=== PATIENT | female | born 1965 | race Caucasian/White ===

== ENCOUNTER 2016-12-24 04:52 | Inpatient (IN) | payer OTHER ==
[2016-12-24] VITALS (22 sets, daily range): BP systolic 86–154; BP diastolic 49–84; PULSE 55–78; RESP 14–22; TEMP 97.9; Ht 157.5 cm; Wt 54.5 kg
[~2016-12-24] VITALS: Ht 157.5 cm; Wt 54.5 kg
[2016-12-24 05:19] LABS: URINE BLOOD (Dip) POC Trace-intact (NEGATIVE)
[2016-12-24] MEDS ORDERED: LIDOCAINE/MYLANTA 40 ML BTL PO STA (05:21)
[2016-12-24] MEDS ORDERED: SOD CHLORIDE 0.9% 1,000 ML IV STA (05:21)
[2016-12-24] MEDS ORDERED: ONDANSETRON 4 MG INJ IV STA (05:21)
[2016-12-24] MEDS ORDERED: KETOROLAC 15 MG INJ IV STA (05:21)
[2016-12-24] MEDS ORDERED: BELLADONNA/PHENOBARBITAL TAB PO STA (05:21)
[2016-12-24 05:44] LABS: BASOPHILS % 0.2 % (0.0-2.0); EOSINOPHILS % 0.2 % (0.0-7.0); HEMATOCRIT 41.1 % (37.0-47.0); HEMOGLOBIN 13.8 g/dl (12.0-16.0); LYMPHOCYTES # 1.3 10^3/ul (0.8-2.9); LYMPHOCYTES % 9.5 % (15.0-51.0); MEAN CORPUSCULAR HEMOGLOBIN 27.6 pg (29.0-33.0); MEAN CORPUSCULAR HGB CONC 33.6 g/dl (32.0-37.0); MEAN CORPUSCULAR VOLUME 82.2 fl (82.0-101.0); MEAN PLATELET VOLUME 11.2 fl (7.4-10.4); MONOCYTE # 0.3 10^3/ul (0.3-0.9); MONOCYTES % 2.5 % (0.0-11.0); NEUTROPHILS % 87.1 % (39.0-77.0); PLATELET COUNT 228 10^3/UL (140-415); RED CELL DISTRIBUTION WIDTH 12.8 % (11.5-14.5); WHITE BLOOD COUNT 13.3 10^3/ul (4.8-10.8)
[2016-12-24 06:09] LABS: ALBUMIN 4.4 g/dl (3.3-4.9); ALBUMIN/GLOBULIN RATIO 1.25; BILIRUBIN,INDIRECT 0.7 mg/dl (0-1.1); BILIRUBIN,TOTAL 0.7 mg/dl (0.2-1.3); CALCIUM 8.8 mg/dl (8.4-10.2); CREATININE 0.58 mg/dl (0.44-1.00); INR 0.93; POTASSIUM 3.8 mmol/L (3.5-5.1); PROTIME 12.5 Sec (12.2-14.2); TOTAL PROTEIN 7.9 g/dl (6.1-8.1)
[2016-12-24] MEDS ORDERED: morphine 4 MG/ML VIAL IV STA (06:10)
[2016-12-24 06:15] LABS: ADD UMIC YES; UR AMORPHOUS CRYSTAL MODERATE /HPF (NONE SEEN); UR ASCORBIC ACID NEGATIVE (NEGATIVE); UR BILIRUBIN (Dip) NEGATIVE (NEGATIVE); UR BLOOD (Dip) NEGATIVE (NEGATIVE); UR CLARITY CLOUDY (CLEAR); UR COLOR YELLOW (YELLOW); UR GLUCOSE (Dip) NEGATIVE (NEGATIVE); UR KETONES (Dip) NEGATIVE (NEGATIVE); UR LEUKOCYTE ESTERASE (Dip) NEGATIVE Leu/ul (NEGATIVE); UR MUCUS FEW /HPF (NONE SEEN); UR NITRITE (Dip) NEGATIVE (NEGATIVE); UR RBC 0 /HPF (0-5); UR SPECIFIC GRAVITY (Dip) 1.019 (1.003-1.030); UR SQUAMOUS EPITHELIAL CELL FEW /HPF (FEW); UR TOTAL PROTEIN (Dip) 1+ mg/dl (NEGATIVE); UR UROBILINOGEN (Dip) NEGATIVE (NEGATIVE)
--- NOTE | 2016-12-24 06:41 | RADRPT ---
PROCEDURE: CT of the abdomen and pelvis without contrast CLINICAL INDICATION: Abdominal Pain. TECHNIQUE: Spiral CT images through the abdomen and pelvis without the use of contrast. The admin istered radiation dose is CTDI 5.75 and DLP 312.18. One or more of the following dose reduction masood hniques were used: automated exposure control, adjustment of the mA and/or kV according to patient s ize, or use of iterative reconstruction technique. COMPARISON: None FINDINGS: Lack of oral and intravenous contrast somewhat limits evaluation. Slight dependent atelectasis of the lung bases is seen. No pleural effusion is seen. The liver, spleen, adrenal glands and pancreas are normal in appearance.. There is evidence of chol elithiasis or biliary ductal dilatation. The kidneys are normal in size and contour. There is no e vidence of hydronephrosis or nephrolithiasis. The aorta is normal in caliber. Prominent mesenteric lymph nodes are seen. There is no evidence for bowel obstruction, free air, free fluid or abscess. The appendix is distended measuring 11-12 mm. Intraluminal hyperdensities or appendicoliths are se en. No significant inflammatory changes are visualized . The ascending and transverse colon are fe kings filled. The uterus is identified. The bladder is decompressed. There is severe L5-S1 degenera tive disk disease.. IMPRESSION: Possible mild or early acute appendicitis. Clinical correlation recommended.. RPTAT: HCNS Physician Jennifer Date Time Electronically viewed and signed by Physician Jennifer on 12/24/2016 06:41 /
--- NOTE | 2016-12-24 07:00 | ERA ---
ER Documentation Chief Complaint Date/Time DATE: 12/24/16 TIME: 06:53 Chief Complaint right mid abdominal pain radiating to back with nausea and vomiting APPAREL STOCK CHECKER HPI 51-year-old female presenting with right lower quadrant pain. Pain started 12 hours ago, is constant, nonradiating, stays in the right lower quadrant, associated with nausea and vomiting. She had normal bowel movement today that was nonbloody. She denies any associated fevers or chills. No dysuria or hematuria. ROS All systems reviewed and are negative except as per history of present illness. Allergies Allergies: Coded Allergies: No Known Allergy (Unverified , 12/24/16) PMhx/Soc History of Surgery: Yes (thyroid) Anesthesia Reaction: No Hx Neurological Disorder: No Hx Respiratory Disorders: No Hx Cardiac Disorders: Yes (HTN) Hx Psychiatric Problems: No Hx Miscellaneous Medical Probl: No Hx Alcohol Use: No Hx Substance Use: No Hx Tobacco Use: No Smoking Status: Never smoker FmHx Family History: No diabetes Physical Exam Vitals Vital Signs Date Time Temp Pulse Resp B/P Pulse Ox O2 Delivery O2 Flow Rate FiO2 12/24/16 06:15 67 18 161/90 98 Room Air 12/24/16 04:54 97.9 69 20 176/86 95 Physical Exam Const: Nontoxic, appears to be in mild distress secondary to pain Head: Atraumatic Eyes: Normal Conjunctiva ENT: Normal External Ears, Nose and Mouth. Neck: Full range of motion..~ No meningismus. Resp: Clear to auscultation bilaterally Cardio: Regular rate and rhythm, no murmurs Abd: Soft, non distended. Mild to moderate McBurney's point tenderness. Normal bowel sounds Skin: No petechiae or rashes Back: No midline or flank tenderness Ext: No cyanosis, or edema Neur: Awake and alert Psych: Normal Mood and Affect Result Diagram: 12/24/16 0530 12/24/16 0530 Results 24 hrs Laboratory Tests Test 12/24/16 05:24 12/24/16 05:30 Bedside Urine pH (LAB) 8.5 Bedside Urine Protein (LAB) 2+ Bedside Urine Glucose (UA) Negative Bedside Urine Ketones (LAB) Negative Bedside Urine Blood Trace-intact Bedside Urine Nitrite (LAB) Negative Bedside Urine Leukocyte Esterase (L Negative White Blood Count 13.310^3/ul Red Blood Count 5.0010^6/ul Hemoglobin 13.8g/dl Hematocrit 41.1% Mean Corpuscular Volume 82.2fl Mean Corpuscular Hemoglobin 27.6pg Mean Corpuscular Hemoglobin Concent 33.6g/dl Red Cell Distribution Width 12.8% Platelet Count 10007^3/UL Mean Platelet Volume 11.2fl Neutrophils % 87.1% Lymphocytes % 9.5% Monocytes % 2.5% Eosinophils % 0.2% Basophils % 0.2% Nucleated Red Blood Cells % 0.0/100WBC Neutrophils # (Manual) 1210^3/ul Lymphocytes # 1.310^3/ul Monocytes # 0.310^3/ul Eosinophils # 0.010^3/ul Basophils # 0.010^3/ul Nucleated Red Blood Cells # 0.010^3/ul Prothrombin Time 12.5Sec Prothrombin Time Ratio 1.0 INR International Normalized Ratio 0.93 Urine Color YELLOW Urine Clarity CLOUDY Urine pH 9.0 Urine Specific [place] 1.019 Urine Ketones NEGATIVEmg/dL Urine Nitrite NEGATIVEmg/dL Urine Bilirubin NEGATIVEmg/dL Urine Urobilinogen NEGATIVEmg/dL Urine Leukocyte Esterase NEGATIVELeu/ul Urine Microscopic RBC 0/HPF Urine Microscopic WBC 3/HPF Urine Squamous Epithelial Cells FEW/HPF Urine Amorphous Crystals MODERATE/HPF Urine Mucus FEW/HPF Urine Hemoglobin NEGATIVEmg/dL Urine Glucose NEGATIVEmg/dL Urine Total Protein 1+mg/dl Sodium Level 136mmol/L Potassium Level 3.8mmol/L Chloride Level 100mmol/L Carbon Dioxide Level 26mmol/L Anion Gap 14 Blood Urea Nitrogen 12mg/dl Creatinine 0.58mg/dl Glucose Level 129mg/dl Calcium Level 8.8mg/dl Total Bilirubin 0.7mg/dl Direct Bilirubin 0.00mg/dl Indirect Bilirubin 0.7mg/dl Aspartate Amino Transf (AST/SGOT) 37IU/L Alanine Aminotransferase (ALT/SGPT) 38IU/L Alkaline Phosphatase 71IU/L Total Protein 7.9g/dl Albumin 4.4g/dl Globulin 3.50g/dl Albumin/Globulin Ratio 1.25 Lipase 84U/L Current Medications Medications (Trade) Dose Ordered Sig/Brenna Route PRN Reason Start Time Stop Time Status Last Admin Dose Admin Sodium Chloride (NS) 1,000 ml @ 1,000 mls/hr Q1H STAT IV 12/24/16 05:21 8/20/17 06:20 DC 12/24/16 05:35 Ondansetron HCl (Zofran Inj) 4 mg ONCE STAT IV 12/24/16 05:21 12/24/16 05:25 DC 12/24/16 05:36 Miscellaneous Medication (Gi Cocktail (2)) 40 ml ONCE STAT PO 12/24/16 05:21 12/24/16 05:25 DC 12/24/16 05:36 Belladonna/ Phenobarbital () 2 tab ONCE STAT PO 12/24/16 05:21 12/24/16 05:25 DC 12/24/16 05:35 Ketorolac Tromethamine (Toradol) 15 mg ONCE STAT IV 12/24/16 05:21 12/24/16 05:25 DC 12/24/16 05:36 Morphine Sulfate (morphine) 4 mg ONCE STAT IV 12/24/16 06:10 12/24/16 06:11 DC 12/24/16 06:14 Ondansetron HCl (Zofran Inj) 4 mg BRIDGE ORDER PRN IV NAUSEA AND/OR VOMITING 12/24/16 07:30 12/25/16 07:29 Acetaminophen 650 mg 650 mg ER BRIDGE PRN PO MILD PAIN/FEVER 12/24/16 07:30 12/25/16 07:29 Potassium Chloride/Dextrose/ Sod Cl 1,000 ml @ 100 mls/hr Q10H IV 12/24/16 07:30 Piperacillin Sod/ Tazobactam Sod (Zosyn 3.375gm/ 100 ml (Pmx)) 100 ml @ 200 mls/hr ONCE ONCE IVPB 12/24/16 07:30 12/24/16 07:59 DC 12/24/16 07:39 Procedures/MDM Labs CBC: Leukocytosis CMP: No evidence of electrolyte abnormality, renal failure, hypoglycemia, liver failure, or biliary obstruction UA: no evidence of infection Imaging: CT abdomen and pelvis: Dilated appendix, possible early acute appendicitis MDM Patient is presenting with right lower quadrant pain and vomiting. Her vitals were normal and she was afebrile. IV was started. IV fluids and analgesics were given. Labs showed evidence of leukocytosis. CT is concerning for early appendicitis. Given the patient's persistent pain on reexamination, I will admit her to the hospitalist service with surgery consulting. I spoke with , the surgeon on-call, who will see the patient today. Patient has been updated on her diagnosis and plan. Zosyn and maintenance fluids started. Departure Diagnosis: Primary Impression: Acute appendicitis Qualified Code: K35.80 - Acute appendicitis, unspecified acute appendicitis type Condition: Serious JESSICA BERNAL MD Dec 24, 2016 07:00
[2016-12-24] MEDS ORDERED: PIPER-TAZO 3.375 GM IV (PMX) 100 ML IVPB ONE (07:30)
[2016-12-24] MEDS ORDERED: ACETAMINOPHEN 325 MG TAB PO PRN ×2 (07:30→11:30)
[2016-12-24] MEDS: D5W-0.45 NACL + KCL 40 MEQ 1,000 ML IV SCH ×2 (07:30→18:37)
[2016-12-24] MEDS ORDERED: ONDANSETRON 4 MG INJ IV PRN ×3 (07:30→11:30)
[2016-12-24] MEDS ORDERED: BUPIVACAINE 0.5%/EPI (SDV) 10 ML INJ ONE (09:25)
[2016-12-24] MEDS ORDERED: FENTAnyl 50 MCG/ML VIAL ONE ×2 (10:34→11:34)
[2016-12-24] MEDS ORDERED: ACETAMINOPHEN 1000MG/100ML IV 100 ML ONE (10:35)
--- NOTE | 2016-12-24 10:59 | OPR ---
Date/Time of Note Date/Time of Note DATE: 12/24/16 TIME: 10:58 Operative Report Operative\Procedure Findings [facility] IN[facility]IENT CONSULT[facility] DATE OF SERVICE: 12/24/2016 PLACE OF SERVICE: [facility], preoperative area ASSESSMENT AND PLAN: A very-pleasant and otherwise healthy 51-year-old lady presenting with acute appendicitis. Even though the patient's pain is minimal ( likely affected by pain medications), my review of the clinical information and in particular the findings on the CT scan are early convincing for a case of appendicitis. I recommended and obtained patient's consent for a laparoscopic, possible open appendectomy. Patient and her appear to understand and agreed to proceed. With above assessment, I've recommended the followin. To the operating room for above Thank you very much for having me involved in the care of this very pleasant patient and wonderful family. If you have any questions, please feel free to contact me at [phone]. Nature of presenting problem: Moderate severity Please note that, given the limited number of diagnoses or management options, the limited amount and/or complexity of data needed to be reviewed, and moderate to high risk of complications and/or morbidity or mortality, this qualifies as moderate complexity type of decision-making. Disclaimer: Inadvertent spelling and grammatical errors are likely due to EHR/ dictation software use and do not reflect on the quality of delivered patient care. Also, please note that the electronic time recorded on this node does not necessarily reflect the actual time of the visit. Updated clinical summary: A very-pleasant and otherwise healthy 51-year-old lady presenting to the emergency department at [facility] on 12/24/2016 with signs and symptoms consistent with early acute appendicitis. Comorbidities: 1. Hypothyroidism CONSULTATION REQUESTED BY: Christine Lion MD HISTORY OF PRESENT ILLNESS: The patient is a very pleasant and otherwise healthy 51-year-old lady presenting to the emergency department at [facility] on 12/24/2016 with signs and symptoms consistent with early acute appendicitis. Patient reported 2 day history of increasing abdominal pain in the right lower quadrant without radiation and associated with nausea and several bouts of nonbloody emesis. No diarrhea or constipation. No blood in the stool or urine. No previous similar attacks in the past. No alleviating factors and exacerbating factors. Not related to food. No other major issues. Patient takes medications for her thyroid. ALLERGIES: NO KNOWN DRUG ALLERGIES MEDICATIONS Documented in the electronic records and reviewed by me. Please see the electronic records for details, as well as details for inpatient medications which were also reviewed by me. SOCIAL HISTORY: The patient lives with family.-Tob;-ETOH;-IVDU FAMILY HISTORY: There are no significant medical, surgical or oncologic issues in the family as reported by the patient or reflected in the chart. REVIEW OF SYSTEMS: Other than mentioned above, there were no other pertinent positives or pertinent negatives in an otherwise complete 14 point review of systems. PHYSICAL EXAMINATION GENERAL: The patient appears to be a very pleasant [place] lady of non- ([place]) descent lying in bed, appearing stated age, and otherwise in no acute distress. BMI: 22.6 VITAL SIGNS: AVSS (please also see auto important data if available as well as the electronic records) HEENT: Normocephalic and atraumatic. Extraocular muscles and hearing are grossly intact bilaterally and symmetrically. Sclerae are nonicteric. Oral cavity is clear; oral mucosa appear to be pink and moist. Dentition: fair. NECK: Supple. There is no lymphadenopathy or JVD. There is no submental, submandibular or supraclavicular lymphadenopathy. CHEST: Rises symmetrically with each breath; patient is breathing comfortably. There are no audible wheezes, rales or rhonchi on the gross exam. HEART: Pulse is regular and palpable on the right wrist. Capillary refill is normal. Carotid pulses are palpable bilaterally and symmetrically in the neck. EXTREMITIES: Lower extremities contain no pitting edema around the ankles bilaterally and symmetrically. ABDOMEN: Abdomen is soft, minimally tender to palpation in the right lower quadrant and nondistended. No evidence of ascites, organomegaly, caput medusae , engorged subcutaneous veins, or other abnormalities. There are no peritoneal signs or guarding. SKIN: Appears to be pink and feels warm to touch. NEUROLOGIC: Awake, alert, and follows commands appropriately. LABORATORY DATA: See below IMAGING: See electronic chart. Please note that I've personally reviewed all pertinent available images and I agree in general with their overall reported findings. DEVANG SWANSON M.D. Dec 24, 2016 10:59
[2016-12-24] MEDS ORDERED: BUPIVACAINE 0.25% (MPF) 30 ML INJ ONE (11:00)
[2016-12-24] MEDS ORDERED: PROPOFOL 20 ML ONE (11:26)
[2016-12-24] MEDS ORDERED: DEXAMETHASONE 4 MG/ML 1 ML INJ ONE (11:26)
[2016-12-24] MEDS ORDERED: ONDANSETRON 4 MG INJ ONE (11:27)
[2016-12-24] MEDS ORDERED: LIDOCAINE 2% (SDV) 5 ML INJ ONE (11:27)
[2016-12-24] MEDS ORDERED: ROCURONIUM 50 MG INJ ONE (11:27)
[2016-12-24] MEDS ORDERED: HYDROmorphONE (0.2 MG/ML) 10ML SYG IV PRN ×3 (11:30)
[2016-12-24] MEDS ORDERED: NITROGLYCERIN (SL) 0.4 MG TAB SL PRN (11:30)
[2016-12-24] MEDS ORDERED: morphine 2 MG INJ IV PRN (11:30)
[2016-12-24] MEDS ORDERED: NACL 0.9% 3 ML SYG IV SCH (11:30)
[2016-12-24] MEDS ORDERED: METOCLOPRAMIDE 10 MG INJ IV PRN (11:30)
[2016-12-24] MEDS ORDERED: hydrALAzine 20 MG INJ IV PRN ×2 (11:30)
[2016-12-24] MEDS ORDERED: EPHEDrine SULFATE 50 MG/5 ML SYG IV PRN (11:30)
[2016-12-24] MEDS ORDERED: MEPERIDINE 25 MG INJ IV PRN (11:30)
[2016-12-24] MEDS ORDERED: KETOROLAC 30 MG INJ IV PRN (11:30)
[2016-12-24] MEDS ORDERED: MAGNESIUM HYDROXIDE 30ML CUP PO PRN (11:30)
[2016-12-24] MEDS ORDERED: FENTAnyl 50 MCG/ML VIAL IV PRN ×3 (11:30)
[2016-12-24] MEDS ORDERED: DIPHENHYDRAMINE 50 MG INJ IV PRN (11:30)
[2016-12-24] MEDS ORDERED: LABETALOL HCL 20MG INJ IV PRN (11:30)
[2016-12-24] MEDS ORDERED: LORAZEPAM 2 MG INJ IV PRN (11:30)
[2016-12-24] MEDS ORDERED: DOCUSATE SODIUM 100 MG CAP PO PRN ×2 (11:30→12:00)
[2016-12-24] MEDS ORDERED: NA PHOSPHATE/BIPHOS 133 ML ENEMA PR PRN ×2 (11:30→12:00)
[2016-12-24] MEDS ORDERED: OXYCODONE/ACETAMINOPHEN (5/325) TAB PO PRN ×2 (11:30)
[2016-12-24] MEDS ORDERED: ALBUTEROL/IPRATROPIUM (NEB) 3 ML AMP HHN PRN (11:30)
[2016-12-24] MEDS ORDERED: HYDROCODONE/APAP (5/325) TAB PO PRN ×3 (11:30→12:00)
[2016-12-24] MEDS ORDERED: SUGAMMADEX SODIUM 200 MG/2 ML VIAL IV ONE (11:58)
[2016-12-24] MEDS ORDERED: BISACODYL 10 MG SUPP PR PRN (12:00)
[2016-12-24] MEDS ORDERED: HYDROmorphONE 1 MG/ML SYG IV PRN ×2 (12:00)
--- NOTE | 2016-12-24 12:09 | OPR ---
Date/Time of Note Date/Time of Note DATE: 12/24/16 TIME: 12:09 Operative Report Operative\Procedure Findings [facility]IENT [facility] PLACE OF SERVICE: [facility] DATE OF SURGERY: 12/24/2016 PREOPERATIVE DIAGNOSIS: 1. Possible early acute appendicitis 2. Thyroid disorder 3. Intermittent hypertension POSTOPERATIVE DIAGNOSIS: 1. Early acute appendicitis 2. Thyroid disorder 3. Intermittent hypertension OPERATION: 1. Laparoscopic appendectomy SURGEON: Devang Swanson M.D. MACHINE STONECUTTER: None ANESTHESIA: General endotracheal tube anesthesia ANESTHESIOLOGIST: Jimmy Yang M.D. BRIEF SUMMARY: An otherwise uncomplicated laparoscopic appendectomy was performed with findings of non-perforated early acute appendicitis. Updated clinical summary: A very-pleasant and otherwise healthy 51-year-old lady presenting to the emergency department at [facility] on 12/24/2016 with signs and symptoms consistent with early acute appendicitis. Comorbidities: 1. Hypothyroidism BRIEF HISTORY: The patient is a very-pleasant and otherwise healthy 51-year-old lady presenting with acute appendicitis. Even though the patient's pain is minimal (likely affected by pain medications), my review of the clinical information and in particular the findings on the CT scan are early convincing for a case of appendicitis. I met with the patient and family (her ) and counseled them regarding the possible options of treatment, and I strongly suggested a laparoscopic, possible open appendectomy. We reviewed the operation in detail as well as the risks, benefits, alternatives, and expected outcomes of this operation. After careful consideration of all the risks, benefits, and alternatives, the patient and family appeared to understand those risks and wished to proceed with surgery. For a detailed report of my consultation with patient and family, please refer to my separate consultation note. STATEMENT OF THE INFORMED CONSENT: The patient and family appeared to understand the risks of the operation to include, but not be limited to risk of postoperative pain and scar tissue, possible infection or bleeding requiring other interventions such as opening the wound, placement of drainage catheters, or other operative interventions; possible injury to surrounding to structures including bowel, bladder, bile duct, or blood vessels, or solid organs such as liver, kidney, or pancreas requiring other interventions or procedures; possible leakage of bowel from anastomotic sites or suture lines causing significant increase in morbidity and mortality and requiring multiple interventions including but not limited to, placement of drainage catheters, imaging studies, as well as operative interventions; possible other source of sepsis such as urinary tract infections or pneumonias, or other sources of potentially life threatening problems such as deep venous thrombus formation causing pulmonary embolism, myocardial arrhythmias and infarctions, and even . After careful consideration of all their options, the patient and family appeared to understand and wished to proceed with surgery. DESCRIPTION OF PROCEDURE: After obtaining informed consent, the patient was brought into the operating room and was placed in a normal supine position, where successful general endotracheal tube anesthesia was performed. Intravenous access was already in place and intravenous antimicrobials had been appropriately chosen and dosed prior to the operation. The patient's abdominal skin was prepped and draped from the nipple line down to the level of the upper thighs in the usual sterile fashion. We then called a surgical time-out where the patient's identification, date of , nature of the operation, allergies , presence of intravenous antimicrobials, presence of needed equipment, and any other concerns were reviewed and agreed upon by all members of the operating room team. We then started the operation by placing a 5 mm skin incision in the left lower quadrant and then introduced a 5 mm [employer] trocar into the peritoneal space, visualizing all the layers of the abdominal wall as we entered. Note that there was no indication of any injury to underlying structures with our entry into the peritoneal space. We insufflated the abdominal cavity to a maximum pressure of 15 mmHg and again inspected the area of insertion and ensured no obvious injury to underlying structures prior to inspecting the abdominal cavity and showing no obvious pus, bowel contents, or other abnormal features. We could not see the appendix very well. We, therefore, injected the future sites of our other trocars with 0.25% Marcaine with epinephrine and placed a 5 mm [employer] trocar into the midline suprapubic area, taking care not to injure the bladder. We also placed a 12 mm trocar in the umbilical midline area, all under direct visualization. With our instruments in place, we had excellent visualization and access to the right lower quadrant. We then identified the appendix, which was inflamed but had a normal base coming out of the cecum. I then went ahead and used judicious amount of cautery as well as mostly blunt dissection to circumferentially isolate the base of the appendix and then transected this using one firing of the white load of the Endo -BRAYDEN stapler. We also repeated the firing on the mesentery of the appendix and completely disconnected the organ from the colon, delivered this out through the 12 mm trocar site inside of an EndoCatch bag without having to enlarge the fascial defect as well as without contaminating the wound. The specimen was sent to Pathology for further analysis. We then ensured adequate hemostasis and bile stasis, removed all our equipment including the pneumoperitoneum from the abdominal cavity prior to closing the infraumbilical fascia with 1 figure-of- eight 0 Vicryl suture on a UR-6 needle, washing the wounds with copious amounts of normal saline, injecting the initial insertion point of the trocar with 0.25 % Marcaine with epinephrine, and then closing the skin using interrupted 4-0 Monocryl sutures. Light dressing was then applied. At the end of the operation, both the sponge count and needle count were reportedly correct x2. The patient tolerated the procedure without any reported complications. ESTIMATED BLOOD LOSS: 5 mL BLOOD OR BLOOD PRODUCT TRANSFUSIONS: None to my knowledge. SPECIMENS: 1. Appendix COMPLICATIONS: None. DISPOSITION: Recovery area. Disclaimer: Inadvertent spelling and grammatical errors are likely due to EHR/ dictation software use and do not reflect on the quality of delivered patient care. DEVANG SWANSON M.D. Dec 24, 2016 12:09
--- NOTE | 2016-12-24 12:10 | CONS ---
Date/Time of Note Date/Time of Note DATE: 12/24/16 TIME: 12:09 Assessment/Plan Assessment/Plan Additional Assessment/Plan [facility] INPATIENT CONSULTATION NOTE DATE OF SERVICE: 12/24/2016 PLACE OF SERVICE: [facility], preoperative area ASSESSMENT AND PLAN: A very-pleasant and otherwise healthy 51-year-old lady presenting with acute appendicitis. Even though the patient's pain is minimal ( likely affected by pain medications), my review of the clinical information and in particular the findings on the CT scan are early convincing for a case of appendicitis. I recommended and obtained patient's consent for a laparoscopic, possible open appendectomy. Patient and her appear to understand and agreed to proceed. With above assessment, I've recommended the followin. To the operating room for above Thank you very much for having me involved in the care of this very pleasant patient and wonderful family. If you have any questions, please feel free to contact me at [phone]. Nature of presenting problem: Moderate severity Please note that, given the limited number of diagnoses or management options, the limited amount and/or complexity of data needed to be reviewed, and moderate to high risk of complications and/or morbidity or mortality, this qualifies as moderate complexity type of decision-making. Disclaimer: Inadvertent spelling and grammatical errors are likely due to EHR/ dictation software use and do not reflect on the quality of delivered patient care. Also, please note that the electronic time recorded on this node does not necessarily reflect the actual time of the visit. Updated clinical summary: A very-pleasant and otherwise healthy 51-year-old lady presenting to the emergency department at [facility] on 12/24/2016 with signs and symptoms consistent with early acute appendicitis. Comorbidities: 1. Hypothyroidism CONSULTATION REQUESTED BY: Christine Lino MD HISTORY OF PRESENT ILLNESS: The patient is a very pleasant and otherwise healthy 51-year-old lady presenting to the emergency department at [facility] on 12/24/2016 with signs and symptoms consistent with early acute appendicitis. Patient reported 2 day history of increasing abdominal pain in the right lower quadrant without radiation and associated with nausea and several bouts of nonbloody emesis. No diarrhea or constipation. No blood in the stool or urine. No previous similar attacks in the past. No alleviating factors and exacerbating factors. Not related to food. No other major issues. Patient takes medications for her thyroid. ALLERGIES: NO KNOWN DRUG ALLERGIES MEDICATIONS Documented in the electronic records and reviewed by me. Please see the electronic records for details, as well as details for inpatient medications which were also reviewed by me. SOCIAL HISTORY: The patient lives with family.-Tob;-ETOH;-IVDU FAMILY HISTORY: There are no significant medical, surgical or oncologic issues in the family as reported by the patient or reflected in the chart. REVIEW OF SYSTEMS: Other than mentioned above, there were no other pertinent positives or pertinent negatives in an otherwise complete 14 point review of systems. PHYSICAL EXAMINATION GENERAL: The patient appears to be a very pleasant [place] lady of non- ([place]) descent lying in bed, appearing stated age, and otherwise in no acute distress. BMI: 22.6 VITAL SIGNS: AVSS (please also see auto important data if available as well as the electronic records) HEENT: Normocephalic and atraumatic. Extraocular muscles and hearing are grossly intact bilaterally and symmetrically. Sclerae are nonicteric. Oral cavity is clear; oral mucosa appear to be pink and moist. Dentition: fair. NECK: Supple. There is no lymphadenopathy or JVD. There is no submental, submandibular or supraclavicular lymphadenopathy. CHEST: Rises symmetrically with each breath; patient is breathing comfortably. There are no audible wheezes, rales or rhonchi on the gross exam. HEART: Pulse is regular and palpable on the right wrist. Capillary refill is normal. Carotid pulses are palpable bilaterally and symmetrically in the neck. EXTREMITIES: Lower extremities contain no pitting edema around the ankles bilaterally and symmetrically. ABDOMEN: Abdomen is soft, minimally tender to palpation in the right lower quadrant and nondistended. No evidence of ascites, organomegaly, caput medusae , engorged subcutaneous veins, or other abnormalities. There are no peritoneal signs or guarding. SKIN: Appears to be pink and feels warm to touch. NEUROLOGIC: Awake, alert, and follows commands appropriately. LABORATORY DATA: See below IMAGING: See electronic chart. Please note that I've personally reviewed all pertinent available images and I agree in general with their overall reported findings. Consultation Date/Type/Reason Admit Date/Time Social History Smoking Status: Never smoker Exam/Review of Systems Vital Signs Vitals Vital Signs Date Time Temp Pulse Resp B/P Pulse Ox O2 Delivery O2 Flow Rate FiO2 12/24/16 08:38 97.9 68 17 130/78 100 Room Air Intake and Output 12/23/16 12/23/16 12/24/16 15:00 23:00 07:00 Intake Total 0 ml Balance 0 ml Results Result Diagram: 12/24/16 0530 12/24/16 0530 Results 24 hrs Laboratory Tests Test 12/24/16 05:24 12/24/16 05:30 Bedside Urine pH (LAB) 8.5 Bedside Urine Protein (LAB) 2+ H Bedside Urine Glucose (UA) Negative Bedside Urine Ketones (LAB) Negative Bedside Urine Blood Trace-intact H Bedside Urine Nitrite (LAB) Negative Bedside Urine Leukocyte Esterase (L Negative White Blood Count 13.3 H Red Blood Count 5.00 Hemoglobin 13.8 Hematocrit 41.1 Mean Corpuscular Volume 82.2 Mean Corpuscular Hemoglobin 27.6 L Mean Corpuscular Hemoglobin Concent 33.6 Red Cell Distribution Width 12.8 Platelet Count 228 Mean Platelet Volume 11.2 H Neutrophils % 87.1 H Lymphocytes % 9.5 L Monocytes % 2.5 Eosinophils % 0.2 Basophils % 0.2 Nucleated Red Blood Cells % 0.0 Neutrophils # (Manual) 12 H Lymphocytes # 1.3 Monocytes # 0.3 Eosinophils # 0.0 Basophils # 0.0 Nucleated Red Blood Cells # 0.0 Prothrombin Time 12.5 Prothrombin Time Ratio 1.0 INR International Normalized Ratio 0.93 Urine Color YELLOW Urine Clarity CLOUDY A Urine pH 9.0 Urine Specific [place] 1.019 Urine Ketones NEGATIVE Urine Nitrite NEGATIVE Urine Bilirubin NEGATIVE Urine Urobilinogen NEGATIVE Urine Leukocyte Esterase NEGATIVE Urine Microscopic RBC 0 Urine Microscopic WBC 3 Urine Squamous Epithelial Cells FEW Urine Amorphous Crystals MODERATE Urine Mucus FEW A Urine Hemoglobin NEGATIVE Urine Glucose NEGATIVE Urine Total Protein 1+ H Sodium Level 136 Potassium Level 3.8 Chloride Level 100 Carbon Dioxide Level 26 Anion Gap 14 Blood Urea Nitrogen 12 Creatinine 0.58 Glucose Level 129 Calcium Level 8.8 Total Bilirubin 0.7 Direct Bilirubin 0.00 Indirect Bilirubin 0.7 Aspartate Amino Transf (AST/SGOT) 37 Alanine Aminotransferase (ALT/SGPT) 38 Alkaline Phosphatase 71 Total Protein 7.9 Albumin 4.4 Globulin 3.50 H Albumin/Globulin Ratio 1.25 Lipase 84 Free Thyroxine 1.00 Medications Medications Current Medications Potassium Chloride/Dextrose/ Sod Cl (D5-1/2ns + KCl 40 Meq) 1,000 ml @ 100 mls/ hr Q10H IV ; Start 12/24/16 at 07:30 Ondansetron HCl (Zofran Inj) 4 mg Q6H PRN IV NAUSEA AND/OR VOMITING; Start at 11:30 Acetaminophen (Tylenol Tab) 650 mg Q6H PRN PO PAIN LEVEL 1-3 OR FEVER; Start at 11:30 Acetaminophen/ Hydrocodone Bitart ([place] (5/325)) 1 tab Q6H PRN PO MODERATE PAIN LEVEL 4-6; Start 12/24/16 at 11:30 Morphine Sulfate (morphine) 2 mg Q4H PRN IV SEVERE PAIN LEVEL 7-10; Start 12/24 at 11:30 Docusate Sodium (Colace) 100 mg Q12H PRN PO CONSTIPATION; Start 12/24/16 at 11: 30 Magnesium Hydroxide (Milk Of Mag) 30 ml DAILY PRN PO CONSTIPATION; Start at 11:30 Sodium Biphosphate/ Sodium Phosphate (Fleet Enema) 133 ml DAILY PRN [place] CONSTIPATION; Start 12/24/16 at 11:30 Pantoprazole (Protonix Iv) 40 mg DAILY@06 IV ; Start 12/25/16 at 06:00; Stop at 16:00 Heparin Sodium (Porcine) (Heparin (5000 Units/0.5 ml)) 5,000 unit Q12 SC ; Start 12/24/16 at 21:00 Lorazepam (Ativan) 0.5 mg Q6H PRN IV ANXIETY; Start 12/24/16 at 11:30 Hydralazine HCl (Apresoline) 10 mg Q6H PRN IV ELEVATED BLOOD PRESSURE; Start at 11:30 Nitroglycerin (Nitroglycerin (Sl Tab) 0.4 Mg) 1 tab Q5M PRN SL ANGINA; Start at 11:30 DEVANG SWANSON M.D. Dec 24, 2016 12:10
--- NOTE | 2016-12-24 14:40 | HP ---
Date/Time of Note Date/Time of Note DATE: 12/24/16 TIME: 14:37 Assessment/Plan VTE Prophylaxis VTE Prophylaxis Intervention: LMWH Lines/Catheters IV Catheter Type (from [facility] Peripheral IV Assessment/Plan Chief Complaint/Hosp Course Assessment and plan: 51-year-old female past medical history of hypothyroidism hypertension who presents with abdominal pain, signs of acute appendicitis 1. Abdominal pain: Likely secondary to acute appendicitis -Admit patient to [facility] floor, surgery consult, IV fluids, pain control medications, surgical procedure for the next 2. Hypothyroidism: Check thyroid panel 3. Hypertension: Blood pressure stable, hydralazine as needed Problems: HPI/ROS Admit Date/Time Admit Date/Time Hx of Present Illness 51-year-old female past medical history of now hypothyroidism, hypertension, who presents with pain that started last night. It has been constant, nonradiating, stays in the right lower quadrant, associated with nausea and vomiting. She had normal bowel movement today that was nonbloody. She denies any associated fevers or chills. No dysuria or hematuria. She has some mild nausea symptoms but no vomiting symptoms. When she came into the ER today she had imaging studies performed that showed acute appendicitis, and was actually seen by surgery team and taken to the OR and had laparoscopic appendectomy performed earlier today. PMH/Family/Social Past Surgical History Past Surgical Hx: other (Thyroidectomy) Family History Significant Family History: no pertinent family hx Social History Alcohol Use: none Smoking Status: Never smoker Drug Use: none Exam/Review of Systems Vital Signs Vitals Vital Signs Date Time Temp Pulse Resp B/P Pulse Ox O2 Delivery O2 Flow Rate FiO2 12/24/16 13:10 60 18 128/70 98 Room Air 12/24/16 12:40 98.6 Exam Exam General: Nontoxic, no acute distress Head: Atraumatic Eyes: Normal Conjunctiva ENT: Normal External Ears, Nose and Mouth. Neck: Full range of motion..~ No meningismus. Resp: Clear to auscultation bilaterally Cardio: Regular rate and rhythm, no murmurs Abd: Soft, non distended. Mild to moderate McBurney's point tenderness. Normal bowel sounds Skin: No petechiae or rashes Back: No midline or flank tenderness Ext: No cyanosis, or edema Neur: Awake and alert Psych: Normal Mood and Affect Labs Result Diagram: 12/24/16 0530 12/24/16 0530 Medications Medications Current Medications Potassium Chloride/Dextrose/ Sod Cl (D5-1/2ns + KCl 40 Meq) 1,000 ml @ 100 mls/ hr Q10H IV ; Start 12/24/16 at 07:30 Ondansetron HCl (Zofran Inj) 4 mg Q6H PRN IV NAUSEA AND/OR VOMITING; Start at 11:30 Acetaminophen (Tylenol Tab) 650 mg Q6H PRN PO PAIN LEVEL 1-3 OR FEVER; Start at 11:30 Acetaminophen/ Hydrocodone Bitart ([place] (5/325)) 1 tab Q6H PRN PO MODERATE PAIN LEVEL 4-6; Start 12/24/16 at 11:30 Morphine Sulfate (morphine) 2 mg Q4H PRN IV SEVERE PAIN LEVEL 7-10; Start 12/24 at 11:30 Docusate Sodium (Colace) 100 mg Q12H PRN PO CONSTIPATION; Start 12/24/16 at 11: 30 Magnesium Hydroxide (Milk Of Mag) 30 ml DAILY PRN PO CONSTIPATION; Start at 11:30 Sodium Biphosphate/ Sodium Phosphate (Fleet Enema) 133 ml DAILY PRN [place] CONSTIPATION; Start 12/24/16 at 11:30 Pantoprazole (Protonix Iv) 40 mg DAILY@06 IV ; Start 12/25/16 at 06:00; Stop at 16:00 Lorazepam (Ativan) 0.5 mg Q6H PRN IV ANXIETY; Start 12/24/16 at 11:30 Hydralazine HCl (Apresoline) 10 mg Q6H PRN IV ELEVATED BLOOD PRESSURE; Start at 11:30 Nitroglycerin (Nitroglycerin (Sl Tab) 0.4 Mg) 1 tab Q5M PRN SL ANGINA; Start at 11:30 Acetaminophen/ Hydrocodone Bitart ([place] (5/325)) 1 tab Q4H PRN PO PAIN LEVEL 4 -7; Start 12/24/16 at 12:00 Acetaminophen/ Hydrocodone Bitart ([place] (5/325)) 2 tab Q4H PRN PO PAIN LEVEL 7 -10; Start 12/24/16 at 12:00 Hydromorphone HCl (Dilaudid) 0.5 mg Q2 PRN IV PAIN; Start 12/24/16 at 12:00 Hydromorphone HCl (Dilaudid) 1 mg Q2 PRN IV PAIN; Start 12/24/16 at 12:00 Docusate Sodium (Colace) 100 mg BID PRN PO CONSTIPATION; Start 12/24/16 at 12: 00 Bisacodyl (Dulcolax Supp) 10 mg BID PRN [place] CONSTIPATION; Start 12/24/16 at 12: 00 Sodium Biphosphate/ Sodium Phosphate (Fleet Enema) 133 ml BID PRN [place] CONSTIPATION; Start 12/24/16 at 12:00 Famotidine (Pepcid Iv) 20 mg DAILY IV ; Start 12/25/16 at 09:00 Enoxaparin Sodium (Lovenox) 40 mg DAILY SC ; Start 12/25/16 at 09:00 TAI WARD Dec 24, 2016 14:40
[2016-12-24] MEDS ORDERED: HEPARIN 5,000 UNIT/0.5 ML VIAL SC SCH (21:00)
[2016-12-25 00:20] VITALS: BP 103/58; RESP 18
[2016-12-25] MEDS: D5W-0.45 NACL + KCL 40 MEQ 1,000 ML IV SCH (03:30)
[2016-12-25] MEDS ORDERED: PANTOPRAZOLE (EC) 40 MG TAB PO SCH (06:00)
[2016-12-25] MEDS ORDERED: PANTOPRAZOLE 40 MG INJ IV SCH (06:00)
[2016-12-25 06:04] VITALS: BP 123/62; PULSE 59; RESP 17
[2016-12-25 06:42] LABS: BASOPHILS % 0.2 % (0.0-2.0); EOSINOPHILS % 0.1 % (0.0-7.0); HEMOGLOBIN 11.2 g/dl (12.0-16.0); LYMPHOCYTES # 2.2 10^3/ul (0.8-2.9); LYMPHOCYTES % 18.3 % (15.0-51.0); MEAN CORPUSCULAR HEMOGLOBIN 26.9 pg (29.0-33.0); MEAN CORPUSCULAR VOLUME 84.1 fl (82.0-101.0); MEAN PLATELET VOLUME 9.9 fl (7.4-10.4); MONOCYTE # 0.9 10^3/ul (0.3-0.9); PLATELET COUNT 259 10^3/UL (140-415); RED BLOOD COUNT 4.16 10^6/ul (4.20-5.40); RED CELL DISTRIBUTION WIDTH 13.4 % (11.5-14.5); WHITE BLOOD COUNT 12.1 10^3/ul (4.8-10.8)
[2016-12-25 07:08] LABS: CHOL/HDL RATIO 3.5 RATIO
[2016-12-25 07:10] LABS: CALCIUM 7.9 mg/dl (8.4-10.2); CREATININE 0.67 mg/dl (0.44-1.00); MAGNESIUM 2.2 mg/dl (1.7-2.5); PHOSPHORUS 2.8 mg/dl (2.5-4.9); POTASSIUM 4.2 mmol/L (3.5-5.1)
[2016-12-25 08:10] VITALS: BP 141/67; RESP 18
[2016-12-25 08:22] LABS: THYROID STIMULATING HORMONE 0.173 MIU/L (0.465-4.680)
[2016-12-25] MEDS ORDERED: ENOXAPARIN 40 MG/0.4 ML SYG SC SCH (09:00)
[2016-12-25] MEDS ORDERED: FAMOTIDINE 20 MG INJ IV SCH (09:00)
[2016-12-25] MEDS ORDERED: DOCU-216 PO (09:44)
--- NOTE | 2016-12-25 09:48 | PDOCDIS ---
Discharge Instructions CONDITION Patient Condition: Stable HOME CARE INSTRUCTIONS: Diet Instructions: Regular ACTIVITY: Activity Restrictions: Slowly Increase Activity Rest between Activity Avoid heavy lifting Do not Drive Do not operate Power Tool Avoid Heavy Housework Bathing Restrictions: Shower FOLLOW UP/APPOINTMENTS Follow-up Plan Discharge Instructions for Laparoscopic Appendectomy (Appendix Removal) You have had a laparoscopic appendectomy to remove your appendix. The appendix is a worm-shaped hollow pouch attached to your large intestine. During your procedure, the doctor made 2 to 4 small incisions. One was near your bellybutton , and the others were elsewhere on your abdomen. Through one incision, the doctor inserted a thin tube with a camera attached (laparoscope). Surgical tools were inserted in the other incisions. While you recover you may have discomfort in your shoulder and chest for up to 48 hours after surgery. This is common. It is caused by gas (carbon dioxide) used during the operation. It will go away. Activity * Resume light activities around your home as soon as possible. * Dont lift anything heavier than 10 pounds until your doctor says its OK. * Limit sports and strenuous activities for 1 or 2 weeks. * Shower as usual: * Gently wash around your incisions with soap and water. * Dont bathe or soak in a tub until your incisions are well healed. * Wear loose-fitting clothes. This will help you be more comfortable and cause less irritation around your incisions. * Dont drive until you are no longer taking prescription pain medication. Diet * Eat a bland, low-fat diet, such as: * Well-cooked soft cereals * Mashed potatoes * Plain toast or bread, crackers * Plain spaghetti * Rice * Macaroni (plain or with cheese) * Cottage cheese * Puddings * Low-fat yogurt * Low-fat milk * Ripe bananas * Drink 6 to 8 glasses of water a day, unless directed otherwise. * If you are constipated, take a fiber laxative such as Metamucil. When to call your healthcare provider Call your healthcare provider right away if you have any of the following: * Swelling, oozing, worsening pain, or unusual redness around the incision * Fever of 100.4F (38C) or higher, or as directed by your healthcare provider * Increasing abdominal pain * Severe diarrhea, bloating, or constipation * Nausea or vomiting REFERRALS Other Referrals Call Dr Edward's office to set up your follow up within 10 days Office Address [address] [place] [address] [address] [place] [address] Office Please discuss your thyroid labs with your regular doctor to see if he/she wants to adjust your thyroid medicine REBEKA DAVIDSON MD Dec 25, 2016 09:48
--- NOTE | 2016-12-25 09:53 | DS ---
Date/Time of Note Date/Time of Note DATE: 12/25/16 TIME: 09:48 Discharge Summary Admission/Discharge Info Admit Date/Time Dec 24, 2016 at 09:25 Discharge Date/Time Discharge Diagnosis acute appendicitis, hypothyroid Patient Condition: Stable Consults general surgery Procedures CT AP 8.20 FINDINGS: Lack of oral and intravenous contrast somewhat limits evaluation. Slight dependent atelectasis of the lung bases is seen. No pleural effusion is seen. The liver, spleen, adrenal glands and pancreas are normal in appearance.. There is evidence of cholelithiasis or biliary ductal dilatation. The kidneys are normal in size and contour. There is no evidence of hydronephrosis or nephrolithiasis. The aorta is normal in caliber. Prominent mesenteric lymph nodes are seen. There is no evidence for bowel obstruction, free air, free fluid or abscess. The appendix is distended measuring 11-12 mm. Intraluminal hyperdensities or appendicoliths are seen. No significant inflammatory changes are visualized . The ascending and transverse colon are fecal filled. The uterus is identified. The bladder is decompressed. There is severe L5-S1 degenerative disk disease.. PROCEDURE laparoscopic appendectomy 8.20 LABS TSH: 0.173 (low) free t4 1.0 (wnl) Hx of Present Illness 51-year-old female past medical history of now hypothyroidism, hypertension, who presents with pain that started last night. It has been constant, nonradiating, stays in the right lower quadrant, associated with nausea and vomiting. She had normal bowel movement today that was nonbloody. She denies any associated fevers or chills. No dysuria or hematuria. She has some mild nausea symptoms but no vomiting symptoms. When she came into the ER today she had imaging studies performed that showed acute appendicitis, and was actually seen by surgery team and taken to the OR and had laparoscopic appendectomy performed earlier today. Hospital Course Pt admitted for acute appendicitis, sp lap appy 8.20. Post op course uncomplicated. Labs notable for low TSH, nl ft4. Pt advised to discuss possible decrease in Synthroid dose with PCP Home Meds Active Scripts Docusate Sodium (Dok) 100 Mg Capsule, 100 MG PO BID for 7 Days, #14 CAP Prov:REBEKA DAVIDSON MD 12/25/16 Follow-up Plan gen surg within 10 days f/u with PCP Re possible decrease in Synthroid dose Primary Care Provider Not On Staff Doctor Time spent on discharge: > 30 minutes Pending Labs Laboratory Tests Test 12/25/16 05:09 White Blood Count 12.110^3/ul (4.8-10.8) Red Blood Count 4.1610^6/ul (4.20-5.40) Hemoglobin 11.2g/dl (12.0-16.0) Hematocrit 35.0% (37.0-47.0) Mean Corpuscular Volume 84.1fl (82.0-101.0) Mean Corpuscular Hemoglobin 26.9pg (29.0-33.0) Mean Corpuscular Hemoglobin Concent 32.0g/dl (32.0-37.0) Red Cell Distribution Width 13.4% (11.5-14.5) Platelet Count 98255^3/UL (140-415) Mean Platelet Volume 9.9fl (7.4-10.4) Neutrophils % 74.0% (39.0-77.0) Lymphocytes % 18.3% (15.0-51.0) Monocytes % 7.0% (0.0-11.0) Eosinophils % 0.1% (0.0-7.0) Basophils % 0.2% (0.0-2.0) Nucleated Red Blood Cells % 0.0/100WBC (0.0-0.0) Neutrophils # (Manual) 910^3/ul (1.7-7.5) Lymphocytes # 2.210^3/ul (0.8-2.9) Monocytes # 0.910^3/ul (0.3-0.9) Eosinophils # 0.010^3/ul (0.0-0.5) Basophils # 0.010^3/ul (0.0-0.1) Nucleated Red Blood Cells # 0.010^3/ul (0.0-0.0) Sodium Level 139mmol/L (135-144) Potassium Level 4.2mmol/L (3.5-5.1) Chloride Level 107mmol/L (97-110) Carbon Dioxide Level 24mmol/L (21-31) Anion Gap 12 (8-16) Blood Urea Nitrogen 12mg/dl (7-20) Creatinine 0.67mg/dl (0.44-1.00) Glucose Level 97mg/dl (70-220) Hemoglobin A1c 5.7% (0-5.9) Calcium Level 7.9mg/dl (8.4-10.2) Phosphorus Level 2.8mg/dl (2.5-4.9) Magnesium Level 2.2mg/dl (1.7-2.5) Triglycerides Level 83mg/dl (0-149) Cholesterol Level 113mg/dl (100-200) LDL Cholesterol, Calculated 64mg/dl HDL Cholesterol 32mg/dl (37-92) Cholesterol/HDL Ratio 3.5RATIO Thyroid Stimulating Hormone (TSH) 0.173MIU/L (0.465-4.680) Copies To: CC: DEVANG SWANSON M.D., ELLEN MD Dec 25, 2016 09:53
[2016-12-25] MEDS ORDERED: SYN1 PO (09:54)
[2016-12-25] MEDS ORDERED: HYDR-3498 PO (09:57)
[2016-12-25] MEDS ORDERED: LEVOTHYROXINE 50 MCG TAB PO ONE (10:00)
== END 2016-12-25 10:28 | disposition home or self-care (01) | DRG 343 ==
LOC: E/R 04:52 → SDS 09:20 → MS1 09:25
PROVIDERS: ADMIT Internal Medicine; ATTEND Internal Medicine
PROC: 0DTJ4ZZ Resection of Appendix, Percutaneous Endoscopic Approach (ICD-10-PCS; principal; 2016-12-24 10:00)
DX: K35.80 Unspecified acute appendicitis (principal); I10 Essential (primary) hypertension; E89.0 Postprocedural hypothyroidism
CPT/HCPCS: 36415; 74176; 80048; 80053; 80061; 81001; 81003; 83036; 83690; 83735; 84100; 84439; 84443; 85025; 85610; 88304; 96361; 96374; 96375; C9113; J0131; J1100; J1644; J1650; J1885; J2270; J2405; J2543; J3010; J3480; J7030

== ENCOUNTER 2017-01-10 10:37 | Outpatient (CLI) | payer OTHER ==
[~2017-01-10] VITALS: Ht 157.5 cm; Wt 56.1 kg
[~2017-01-10 10:37] MED LIST: DOCU-216 PO; HYDR-3498 PO; SYN1 PO
[2017-01-10 10:51] VITALS: BP 137/72; PULSE 93; RESP 16; Ht 157.5 cm; Wt 56.1 kg
--- NOTE | 2017-01-10 20:45 | PN ---
Date/Time of Note Date/Time of Note DATE: 01/10/17 TIME: 20:44 Assessment/Plan Assessment/Plan Assessment/Plan [facility] Progress Note Date of Service: 01/10/17 Today's Impression & Plan: Overall doing well post op without major issues. No major wound problems. With above assessment, I've recommended the following for today: 1. F/u with PCP 2. F/u with us prn Nature of presenting problem: Thank you again for your great care of this very pleasant patient and wonderful family. If there are any questions, please feel free to call me at [phone]. Disclaimer: Inadvertent spelling or grammatical errors are likely due to EHR/ dictation software use and do not reflect on the overall quality of patient care. Updated clinical summary: A very-pleasant and otherwise healthy 51-year-old lady presenting to the emergency department at [facility] on 12/24/2016 with signs and symptoms consistent with early acute appendicitis. S/p lap logan 12/24/16. Comorbidities: 1. Hypothyroidism Subjective: No major events or complaints; no abd pain and no longer taking pain medications ; no n/v/d; no sob or cp; + flatus; + BM and normal; + activity Objective: Vitals: See below Exam: GENERAL: On exam, the patient was sitting in a chair and appeared to be comfortable and in no acute distress. ABDOMEN: Soft, nontender and nondistended. Incisions are clean, dry and intact without any evidence of erythema, edema, discharge, or hernia. There are no peritoneal signs or guarding. SKIN: Skin appears to be pink and feels warm to touch. NEUROLOGIC: Patient is awake, alert, and follows commands appropriately. Exam/Review of Systems Vital Signs Vitals Vital Signs Date Time Temp Pulse Resp B/P Pulse Ox O2 Delivery O2 Flow Rate FiO2 01/10/17 10:51 98.2 93 16 137/72 98 Room Air DEVANG SWANSON M.D. Jan 10, 2017 20:45
== END 2017-01-10 16:45 | disposition home or self-care (01) ==
LOC: HPC 10:37
PROVIDERS: ATTEND Transplant Surgery
DX: K35.80 Unspecified acute appendicitis (principal); E03.9 Hypothyroidism, unspecified
CPT/HCPCS: G0463

== ENCOUNTER 2018-07-31 09:33 | Emergency (ER) | payer OTHER ==
[~2018-07-31] VITALS: Wt 56.0 kg
[~2018-07-31 09:33] MED LIST changes: -HYDR-3498 PO; +LEVO-86 PO; -SYN1 PO
[2018-07-31 09:35] VITALS: BP 140/78; PULSE 94; RESP 18
[2018-07-31] MEDS ORDERED: KETOROLAC 30 MG INJ IM STA (10:12)
[2018-07-31] MEDS ORDERED: TRAM50TA2 PO (10:13)
--- NOTE | 2018-07-31 10:15 | ERD ---
ER Documentation Chief Complaint Chief Complaint BACK PAIN X 1 WEEK HPI 53-year-old female presents the emergency department complaining of back pain. Patient states that approximately 1 week ago she lifted her grandchild. Since then, she is been having bilateral lower back pain. Her pain is currently worse on the left side. It radiates down her left leg. She reports no fevers, chills, bowel or bladder incontinence, numbness, tingling, saddle anesthesia. ROS All systems reviewed and are negative except as per history of present illness. Medications Home Meds Active Scripts Tramadol HCl (Tramadol HCl) 50 Mg Tablet, 50 MG PO Q6 PRN for PAIN, #20 TAB Prov:LEE PRETTY 07/31/18 Levothyroxine Sodium (Levothroid) 100 Mcg Tablet, 50 MCG PO BEFORE BREAKFAST for 30 Days, #30 TAB Prov:REBEKA DAVIDSON MD 12/25/16 Docusate Sodium (Dok) 100 Mg Capsule, 100 MG PO BID for 7 Days, #14 CAP Prov:REBEKA DAVIDSON MD 12/25/16 Allergies Allergies: Coded Allergies: No Known Allergy (Unverified , 12/24/16) PMhx/Soc History of Surgery: Yes (thyroidectomy) Anesthesia Reaction: No Hx Neurological Disorder: No Hx Respiratory Disorders: No Hx Cardiac Disorders: No Hx Psychiatric Problems: No Hx Miscellaneous Medical Probl: No Hx Alcohol Use: No Hx Substance Use: No Hx Tobacco Use: No Physical Exam Vitals Vital Signs Date Temp Pulse Resp B/P (MAP) Pulse Ox O2 O2 Flow FiO2 Time Delivery Rate 07/31/18 97.8 94 18 140/78 99 09:35 (98) Physical Exam General: well developed, well nourished, in no distress. Neuro: Normal speech, gait, balance Back: No midline spinal tenderness or spasm. No obvious step-off or trauma. Abdomen: Soft, nontender, nondistended. No CVA tenderness. Results 24 hrs Current Medications Medications Dose Sig/Brenna Start Time Status Last (Trade) Ordered Route PRN Stop Time Admin Dose Reason Admin Ketorolac 30 mg ONCE STAT 07/31/18 DC Tromethamine IM 10:12 (Toradol) 07/31/18 10:14 Procedures/MDM Patient was taken to a room, seen and examined Medical decision making: Patient presents today with atraumatic back pain. Although infection, malignancy, GI, , and vascular causes have been considered in this patient, the patients clinical presentation is most consistent with a musculoskeletal cause. There is neither evidence of any acute neurologic damage, nor of loss of function and thus, advanced imaging studies have been deferred. Patient will be treated conservatively with appropriate pain control with precautionary discharge instructions provided. Departure Diagnosis: Primary Impression: Back pain Condition: Stable Patient Instructions: Back Pain (Acute Or Chronic) Additional Instructions: Please see your doctor if not improving in the next 3-5 days. Return here if there is any worsening symptoms. LEE PRETTY Jul 31, 2018 10:15
== END 2018-07-31 10:30 | disposition home or self-care (01) ==
LOC: FTE 09:33
DX: M54.5 Low back pain (principal)
CPT/HCPCS: 96372; J1885; Z7502

== ENCOUNTER 2018-08-05 10:07 | Emergency (ER) | payer OTHER ==
[~2018-08-05] VITALS: Ht 157.5 cm; Wt 55.3 kg
[~2018-08-05 10:07] MED LIST changes: +TRAM50TA2 PO
[2018-08-05 10:09] VITALS: PULSE 90; RESP 18; Ht 157.5 cm; Wt 55.3 kg
[2018-08-05] MEDS ORDERED: HYDROCODONE/APAP (5/325) TAB PO ONE (10:30)
[2018-08-05] MEDS ORDERED: MED4DP PO (11:30)
[2018-08-05] MEDS ORDERED: CYCL10TA7 PO (11:31)
[2018-08-05 11:47] VITALS: BP 162/86
--- NOTE | 2018-08-05 17:45 | ERD ---
ER Documentation Chief Complaint Chief Complaint lower back pain x 3 weeks HPI Patient is a 53-year-old female with a history of hypertension, presents the ER for concerns of lower back pain times 3 weeks. Patient states the pain started after she was lifting up her grandchild. Patient describes the pain to be loca lized to her left lower back. Patient states that the pain does radiate down bilateral legs. Patient describes the pain to be localized to her bilateral lower back. Patient states the pain does radiate down her left leg. Patient denies any falls or trauma. Patient denies any headache, abdominal pain, chest pain, shortness of breath, nausea, vomiting or LOC. Patient denies any saddle anesthesia, urine incontinence or stool incontinence. Patient denies any neck pain or IV drug use. Patient was seen here on 07-31-18 for similar symptoms and states she was given tramadol which was intermittently helping with her symptoms however now it has not helped with her pain. ROS All systems reviewed and are negative except as per history of present illness. Medications Home Meds Active Scripts Cyclobenzaprine Hcl* (Cyclobenzaprine Hcl*) 10 Mg Tablet, 10 MG PO BID, #10 TAB Prov:PREET MENDOZA PA-C 08/05/18 Methylprednisolone* (Medrol* DOSE PACK) 4 Mg/Dose-Pack Tab.ds.pk, 4 MG PO . DIRECTED, #1 PACKET Prov:PREET MENDOZA PA-C 08/05/18 Tramadol HCl (Tramadol HCl) 50 Mg Tablet, 50 MG PO Q6 PRN for PAIN, #20 TAB Prov:LEE PRETTY 07/31/18 Levothyroxine Sodium (Levothroid) 100 Mcg Tablet, 50 MCG PO BEFORE BREAKFAST for 30 Days, #30 TAB Prov:REBEKA DAVIDSON MD 12/25/16 Docusate Sodium (Dok) 100 Mg Capsule, 100 MG PO BID for 7 Days, #14 CAP Prov:REBEKA DAVIDSON MD 12/25/16 Allergies Allergies: Coded Allergies: No Known Allergy (Unverified , 08/05/18) PMhx/Soc History of Surgery: Yes (thyroidectomy,appendectomy) Anesthesia Reaction: No Hx Neurological Disorder: No Hx Respiratory Disorders: No Hx Cardiac Disorders: Yes (HTN) Hx Psychiatric Problems: No Hx Miscellaneous Medical Probl: No Hx Alcohol Use: No Hx Substance Use: No Hx Tobacco Use: No FmHx Family History: No diabetes Physical Exam Vitals Vital Signs Date Temp Pulse Resp B/P (MAP) Pulse Ox O2 O2 Flow FiO2 Time Delivery Rate 08/05/18 162/86 11:47 (111) 08/05/18 97.8 90 18 167/82 99 10:09 (110) Physical Exam GENERAL: Well-developed, well-nourished female. Appears in no acute distress. Speaking in full sentences. HEAD: Normocephalic, atraumatic. EYES: Pupils are equally reactive bilaterally. EOMs grossly intact. No conjunctival erythema. NECK: Supple. No meningismus. Normal range of motion of the neck. LUNG: Clear to auscultation bilaterally. No rhonchi, wheezing, rales or coarse breath sounds. HEART: Regular rate and rhythm. No murmurs, rubs or gallops. Equal pulses in bilateral upper extremities. ABDOMEN: No scars, ecchymosis or rashes noted. No pulsatile abdominal masses noted. Soft, nontender, and nondistended. Positive bowel sounds in all four quadrants. No rebound tenderness, no guarding. (-) McBurney's point tenderness. No CVA tenderness. BACK: No midline tenderness. Tender to palpation over the left lumbar paraspinal muscle with positive straight leg raise on the left side. EXTREMITIES: Equal pulses bilaterally. No peripheral clubbing, cyanosis or edema. No unilateral leg swelling. NEUROLOGIC: Alert and oriented. Moving all four extremities without any difficulty. Normal speech. Steady gait. SKIN: Normal color. Warm and dry. No rashes or lesions. Results 24 hrs Laboratory Tests Test 08/05/18 10:39 Bedside Urine pH (LAB) 7.0 Bedside Urine Protein (LAB) Negative Bedside Urine Glucose (UA) Negative Bedside Urine Ketones (LAB) Negative Bedside Urine Blood Negative Bedside Urine Nitrite (LAB) Negative Bedside Urine Leukocyte Esterase (L Negative Current Medications Medications Dose Sig/Brenna Start Time Status Last (Trade) Ordered Route PRN Stop Time Admin Dose Reason Admin 1 tab ONCE ONCE 08/05/18 DC 08/05/18 Acetaminophen PO 10:30 08/05/18 10:35 / 10:31 Hydrocodone Bitart (Milligan (5/325)) Procedures/MDM ED COURSE: The patient was stable throughout ED course. I kept the patient and/or family informed of laboratory and diagnostic imaging results throughout the ED course. DIAGNOSTIC IMAGING: Read by radiologist. Patient: ZENON OBRIEN : 1965 Age: 53 Sex: F MR #: [id number] DOS: 08/05/18 1023 Ordering MD: PREET MENDOZA PA-C Location: [facility] Room/Bed: PROCEDURE: XR Lumbar Spine. CLINICAL INDICATION: Low back pain. TECHNIQUE: AP, lateral, and lateral lumbosacral junction views of the lumbar spine are available for review COMPARISON: None available FINDINGS: The normal lumbar lordosis is preserved. No acute fracture or compression is seen. The vertebral body heights are all normal. Mild degenerative disc changes at the L5-S1 level with this space narrowing and small osteophytes are present.. On the frontal view, there is normal alignment. Paraspinous soft tissues are grossly unremarkable. IMPRESSION: 1. Mild degenerative disc changes at the L5-S1 level. 2. No acute fracture or compression. RPTAT: BBCC .Reese Tejeda MD, Date Time Electronically viewed and signed by .Reese Tejeda MD, on 08/05/2018 11:19 .L/ CC: PREET MENDOZA PA-C [id number] Patient: ZENON OBRIEN : 1965 Age: 53 Sex: F MR #: [id number] DOS: 08/05/18 1031 Ordering MD: PREET MENDOZA PA-C Location: [facility] Room/Bed: PROCEDURE: XR Chest. CLINICAL INDICATION: Pain . TECHNIQUE: Single frontal chest x-ray. COMPARISON: None. FINDINGS: The lungs are clear of acute infiltrates, edema, effusions, or masses.. The cardiomediastinal silhouette is unremarkable. The osseous structures are intact. IMPRESSION: No acute cardiopulmonary disease. RPTAT: BBCC .Reese Tejeda MD, Date Time Electronically viewed and signed by .Reese Tejeda MD, on 08/05/2018 11:18 .L/ CC: KELLYEUGENIAANG FLAHERTY [id number] PROCEDURES: None. MEDICATIONS GIVEN: Milligan Patient tolerated medication well with no adverse reactions. MEDICAL DECISION MAKING: This is a 53-year-old female with a past medical history of hypertension who presents the ER for concerns of lower abdominal pain times 3 weeks. Vital signs were reviewed. Patient was afebrile. Patient denied any saddle anesthesia, urinary incontinence, bowel incontinence, night pain or recent trauma. X-ray imaging was obtained at today's visit. Chest x-ray was unremarkable. No widening of the mediastinum was noted. Lumbar series showed 1. Mild degenerative disc changes at the L5-S1 level. 2. No acute fracture or compression. UA was negative for hematuria or leukocytes. She was given Milligan for her pain. Patient reported improvement in pain. At this time of the patient's presentation is most consistent with lower back pain. Patient likely has sciatica. Low suspicion for cauda equine syndrome, spinal fractures, epidural abscess, spinal metastases, osteomyelitis, aortic dissection, ruptured or leaking AA, nephrolithiasis or pyelonephritis. PRESCRIPTIONS: Flexeril Of note, patient was given tramadol at previous visit. Patient advised not to take tramadol Flexeril at the same time due to sedating effects. DISCHARGE: At this time, patient is stable for discharge and outpatient management. RICE therapy and ROM exercises were advised to avoid stiffness. I have instructed the patient to follow-up with his/her primary care physician in 1-2 days. I have discussed with the patient the possibility of needing to see an animal control specialist for further workup and imaging if the pain persists. I have instructed the patient to promptly return to the ER for any new or worsening symptoms including increased pain, swelling, warmth, urinary incontinence, stool incontinence, weakness or numbness. The patient and/or family expressed understanding of and agreement with this plan. All questions were answered. Home care instructions were provided. Patient's blood pressure was elevated (>120/80) but appears stable without evidence of hypertensive emergency, hypertensive urgency or end-organ failure. I had discussion with the patient about the risks of hypertension. I have advised the patient to follow up with his/her primary care physician for outpatient monitoring and treatment for hypertension in 2-3 days. I have instructed the patient to return to the ER for any new or worsening symptoms including chest pain, shortness of breath, headache, blurred vision, confusion, nausea, vomiting or LOC. Disclaimer: Inadvertent spelling and grammatical errors are likely due to EHR/dictation software use and do not reflect on the overall quality of patient care. Also, please note that the electronic time recorded on this note does not necessarily reflect the actual time of the patient encounter. Departure Diagnosis: Primary Impression: Back pain Back pain location: low back pain Chronicity: chronic Back pain laterality: bilateral Sciatica presence: with sciatica Sciatica laterality: sciatica of left side Qualified Codes: M54.42 - Lumbago with sciatica, left side; G89.29 - Other chronic pain Condition: Fair Patient Instructions: Back Pain (Acute Or Chronic), Back Pain W/ Sciatica Referrals: [facility] YOU HAVE RECEIVED A MEDICAL SCREENING EXAM AND THE RESULTS INDICATE THAT YOU DO NOT HAVE A CONDITION THAT REQUIRES URGENT TREATMENT IN THE EMERGENCY DEPARTMENT. FURTHER EVALUATION AND TREATMENT OF YOUR CONDITION CAN WAIT UNTIL YOU ARE SEEN IN YOUR DOCTORS OFFICE WITHIN THE NEXT 1-2 DAYS. IT IS YOUR RESPONSIBILITY TO MAKE AN APPOINTMENT FOR FOLOW-UP CARE. IF YOU HAVE A PRIMARY DOCTOR --you should call your primary doctor and schedule an appointment IF YOU DO NOT HAVE A PRIMARY DOCTOR YOU CAN CALL OUR PHYSICIAN REFERRAL HOTLINE AT IF YOU CAN NOT AFFORD TO SEE A PHYSICIAN YOU CAN CHOSE FROM THE FOLLOWING [facility] [place] [address] [facility] [address] [facility] [address] [facility] [address] [facility] [address] [facility]. [facility]. [address] [facility] YOU HAVE RECEIVED A MEDICAL SCREENING EXAM AND THE RESULTS INDICATE THAT YOU DO NOT HAVE A CONDITION THAT REQUIRES URGENT TREATMENT IN THE EMERGENCY DEPARTMENT. FURTHER EVALUATION AND TREATMENT OF YOUR CONDITION CAN WAIT UNTIL YOU ARE SEEN IN YOUR DOCTORS OFFICE WITHIN THE NEXT 1-2 DAYS. IT IS YOUR RESPONSIBILITY TO MAKE AN APPOINTMENT FOR FOLOW-UP CARE. IF YOU HAVE A PRIMARY DOCTOR --you should call your primary doctor and schedule and appointment IF YOU DO NOT HAVE A PRIMARY DOCTOR YOU CAN CALL OUR PHYSICIAN REFERRAL HOTLINE AT . IF YOU CAN NOT AFFORD TO SEE A PHYSICIAN YOU CAN CHOSE FROM THE FOLLOWING [facility] INSTITUTIONS: [facility] [address] [place] [address] [facility] [address] [place] [address] [facility] [address] [place] [address] Additional Instructions: Follow up with animal control specialist/spinal surgeon for reevaluation of your symptoms. You may need MRI. Continue taking tramadol as needed for pain. Do not take muscle relaxant while taking tramadol. Do not drive or go to work when taking muscle relaxant. Call your primary care doctor TOMORROW for an appointment during the next 1-2 days.See the doctor sooner or return here if your condition worsens before your appointment time. PREET MENDOZA PA-C Aug 05, 2018 17:44
== END 2018-08-05 11:50 | disposition home or self-care (01) ==
LOC: FTE 10:07
DX: M54.42 Lumbago with sciatica, left side (principal); G89.29 Other chronic pain; I10 Essential (primary) hypertension
CPT/HCPCS: 71045; 72100; 81003; Z7502; Z7610